=== PATIENT | female | born 1980 | race Caucasian/White ===

== ENCOUNTER 2019-02-21 12:46 | Emergency (ER) | payer BC ==
[2019-02-21] MEDS ORDERED: HYDROmorphone 1 MG/ML Syringe IM ONE (13:05)
--- NOTE | 2019-02-21 13:09 | EDM.PDOC ---
ED HPI GENERAL MEDICAL PROBLEM - General Chief Complaint: Upper Extremity Injury/Pain Stated Complaint: FELL AND INJURED RIGHT ARM Time Seen by Provider: 02/21/19 13:05 Source of Information: Reports: Patient History Limitations: Reports: No Limitations - History of Present Illness INITIAL COMMENTS - FREE TEXT/NARRATIVE: 38 yo female fell off a chair and injured her R wrist about 2 hrs prior to arrival. No self tx. Has a bulk truck driver. No other injuries. 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: Other (see below) (none) Right Wrist Pain Score (Numeric/FACES): 9 - Related Data Allergies Allergy/AdvReac Type Severity Reaction Status Date / Time No Known Allergies Allergy Verified 02/21/19 13:54 Home Meds: Home Meds Acetaminophen/HYDROcodone [Clinton 325-5 MG] 1 - 2 tab PO Q6H PRN #20 tab [Rx] Nitrofurantoin Macrocrystal [Macrodantin] 50 mg PO DAILY 02/21/19 [History] Pantoprazole 20 mg PO DAILY 02/21/19 [History] Review of Systems - Review of Systems Review Of Systems: See Below Constitutional: Reports: No Symptoms Eyes: Reports: No Symptoms Ears: Reports: No Symptoms Nose: Reports: No Symptoms Mouth/Throat: Reports: No Symptoms Respiratory: Reports: No Symptoms Cardiovascular: Reports: No Symptoms GI/Abdominal: Reports: No Symptoms Genitourinary: Reports: No Symptoms Musculoskeletal: Reports: Joint Pain (R wrist) Skin: Reports: No Symptoms ED EXAM, GENERAL - Physical Exam Exam: See Below Exam Limited By: No Limitations General Appearance: Alert, WD/WN, No Apparent Distress Nose: No Blood Head: Atraumatic, Normocephalic Respiratory/Chest: No Respiratory Distress, No Accessory Muscle Use Cardiovascular: Regular Rate, Rhythm Extremities: Joint Swelling (R wrist dorsally), Limited Range of Motion (R wrist ). No: Increased Warmth, Redness Neurological: Alert, Oriented, CN II-XII Intact, Normal Cognition, No Motor/ Sensory Deficits Psychiatric: Normal Affect, Normal Mood Skin Exam: Warm, Dry, Intact, Normal Color, No Rash Course - Vital Signs Last Recorded V/S: Last Vital Signs Temp 36.6 C 02/21/19 13:27 Pulse 79 02/21/19 13:27 Resp 20 02/21/19 13:27 BP 112/48 L 02/21/19 13:27 Pulse Ox 98 02/21/19 13:27 - Orders/Labs/Meds Meds: Medications Discontinued Medications Generic Name Dose Route Start Last Admin Trade Name Amina PRN Reason Stop Dose Admin Hydromorphone HCl 1 mg 02/21/19 13:05 02/21/19 13:16 Dilaudid IM 02/21/19 13:06 1 mg ONETIME ONE Administration Ketorolac Tromethamine 60 mg 02/21/19 13:45 02/21/19 13:55 Toradol IM 02/21/19 13:46 60 mg ONETIME ONE Administration - Radiology Interpretation Free Text/Narrative:: R wrist X-ray-neg Departure - Departure Time of Disposition: 14:50 Disposition: Home, Self-Care 01 Condition: Fair Clinical Impression: Sprain of wrist, right Qualifiers: Encounter type: initial encounter Qualified Code(s): S63.501A - Unspecified sprain of right wrist, initial encounter - Discharge Information *PRESCRIPTION DRUG MONITORING PROGRAM REVIEWED*: No *COPY OF PRESCRIPTION DRUG MONITORING REPORT IN PATIENT NGOC: No Instructions: Wrist Sprain, Adult Referrals: PCP,None [Primary Care Provider] - Forms: ED Department Discharge Additional Instructions: Take ibuprofen 600 mg every 6 hrs with food starting after 8 pm today. Take either acetaminophen OR Clinton for added relief. Wear your splint at all times. Elevate to reduce/prevent swelling. Take your X-rays to your follow up appt with your doctor in a week.
[2019-02-21] MEDS ORDERED: Ketorolac 60 MG/2 ML SDV IM ONE (13:45)
--- NOTE | 2019-02-21 14:26 | CRLCR ---
Indication: Fall with pain Technique: Right wrist with navicular 4 views Comparison: None Findings: Bones: Alignment is normal. No fractures or bone lesions. Joint spaces: Unremarkable. Soft tissues: Unremarkable. Impression: Normal right wrist. No sign of acute injury. Dictated by Braden Mckinney MD @ 02/21/2019 2:25:09 PM Dictated by: Braden Mckinney MD @ 02/21/2019 14:25:32 (Electronically Signed)
== END 2019-02-21 15:14 | disposition home or self-care (01) ==
LOC: JP.ED 12:46
DX: S63.501A Unspecified sprain of right wrist, initial encounter (principal); Z79.899 Other long term (current) drug therapy; W07.XXXA Fall from chair, initial encounter
CPT/HCPCS: 73110; 96372; 99283; J1170; J1885